=== PATIENT | male | born 1980 | race Hispanic/Latino ===

== ENCOUNTER 2017-12-25 15:15 | Inpatient (IN) | payer MEDICAID ==
[2017-12-25 15:15] VITALS: BMI 27.8
--- NOTE | 2017-12-25 16:23 | C.PDOC ---
History Of Present Illness 37 y/o male, prescreened, presents to the ER requesting detox from heroin. Patient states that he last used heroin in the morning. Patient reports that he also uses street Fentanyl. He also notes that he has been prescribed Seroquel. Denies having suicidal ideation, homicidal ideation, and active physical complaints. Time Seen by Provider: 12/25/17 16:23 Chief Complaint (Nursing): Substance Abuse History Per: Patient History/Exam Limitations: no limitations Past Medical History Reviewed: Historical Data, Nursing Documentation, Vital Signs Vital Signs: Last Vital Signs Temp 97.9 F 12/25/17 16:12 Pulse 82 12/25/17 16:12 Resp 20 12/25/17 16:12 BP 120/84 12/25/17 16:12 Pulse Ox 99 12/25/17 17:48 - Medical History PMH: Anxiety Denies: Depression Surgical History: No Surg Hx - [facility] IMMOBILIZ/WOUND ATTN NEC (01/23/13) INJECT/INFUSE NEC (01/23/13) Family History: States: No Known Family Hx - Social History Hx Tobacco Use: Yes Hx Alcohol Use: No Hx Substance Use: No - Immunization History Hx Tetanus Toxoid Vaccination: Yes Hx Influenza Vaccination: No Hx Pneumococcal Vaccination: No Review Of Systems Except As Marked, All Systems Reviewed And Found Negative. Physical Exam - Physical Exam Appears: Other (mild intoxication, alert, cooperative) Skin: Normal Color, Warm, Dry Head: Atraumatic, Normacephalic Eye(s): bilateral: Normal Inspection Neurological/Psych: Oriented x3, Normal Speech, Other (alert, cooperative, no active psychosis, no active SI) ED Course And Treatment - Laboratory Results Result Diagrams: 12/25/17 16:54 12/25/17 16:54 O2 Sat by Pulse Oximetry: 99 Reevaluation Time: 17:48 Reassessment Condition: Improved (MED CLEAR FOR DETOX. CRISIS NOTIFIED) Medical Decision Making Medical Decision Making: Plan: --Labs --UA --Crisis Disposition Counseled Patient/Family Regarding: Studies Performed, Diagnosis - Disposition Disposition: HOSPITALIZED Disposition Time: 18:01 Condition: STABLE Forms: [facility] (Bulgarian) - POA Present On Arrival: None - Clinical Impression Clinical Impression: Opiate abuse, continuous - Scribe Statement The provider has reviewed the documentation as recorded by the Nida Sutton Provider Attestation: All medical record entries made by the Nida were at my direction and personally dictated by me. I have reviewed the chart and agree that the record accurately reflects my personal performance of the history, physical exam, medical decision making, and the department course for this patient. I have also personally directed, reviewed, and agree with the discharge instructions and disposition.
[2017-12-25 16:58] LABS: BASO # 0.1 K/uL (0.0-0.2); EOS # 0.3 K/uL (0.0-0.7)
[2017-12-25 17:06] LABS: EOS % 2.8 % (0.0-4.0); HEMOGLOBIN 13.9 g/dL (12.0-18.0); LYMPH # 4.5 K/uL (1.0-4.3); MEAN CORPUSCULAR HEMOGLOBIN 29.3 pg (27.0-31.0); MEAN CORPUSCULAR HGB CONC 33.6 g/dL (33.0-37.0); MEAN PLATELET VOLUME 8.4 fL (7.2-11.7); MONO # 0.8 K/uL (0.0-0.8); MONO % 6.8 % (0.0-10.0); NEUT # 6.6 K/uL (1.8-7.0); NEUT % 53.4 % (50.0-75.0); NRBC % 0.2 % (0.0-2.0); RBC 4.77 Mil/uL (4.40-5.90); RED CELL DISTRIBUTION WIDTH 13.2 % (11.5-14.5); WHITE BLOOD COUNT 12.4 K/uL (4.8-10.8)
[2017-12-25 17:07] LABS: SQUAMOUS EPITHIAL < 1 /hpf (0-5); URINE BILIRUBIN NEGATIVE (NEGATIVE); URINE BLOOD NEGATIVE (NEGATIVE); URINE CLARITY Clear (Clear); URINE GLUCOSE (UA) NORMAL (Normal); URINE LEUKOCYTE ESTERASE NEG Leu/uL (Negative); URINE PROTEIN NEGATIVE (NEGATIVE)
[2017-12-25 17:08] LABS: URINE COLOR YELLOW (YELLOW)
[2017-12-25 17:20] LABS: ALB/GLOB RATIO 1.3 (1.0-2.1); ALBUMIN 4.7 g/dL (3.5-5.0); ALT/SGPT 20 U/L (21-72); AST/SGOT 16 U/L (17-59); BLOOD UREA NITROGEN 18 mg/dL (9-20); CALCIUM 9.3 mg/dl (8.6-10.4); GFR AFRICAN-AMERICAN > 60; GFR NON-AFRICAN AMERICAN > 60
[2017-12-25 17:36] LABS: BARBITURATES, UR NEGATIVE (NEGATIVE); PHENCYCLIDINE, UR NEGATIVE (NEGATIVE)
[2017-12-25 17:42] LABS: BENZODIAZEPINES, UR POSITIVE (NEGATIVE); OPIATES, UR POSITIVE (NEGATIVE)
--- NOTE | 2017-12-25 18:31 | PCM.BM ---
<Rolan Moore - Last Filed: 12/25/17 18:30> Treatment Plan Problems - Problems identified on initial assessmt potential for opiate withdrawal Date Initiated: 12/25/17 Time Initiated: 18:31 Status: Active Treatment assets and liabiliti Patient Liabilities: substance abuse, medical problems - Milieu Protocol Maintain good personal hygiene: daily Encourage regular showers, daily Remind patient to perform daily oral care, daily Assist patient to perform ADL's Conduct patient checks and document Observation sheet: Q15 minutes Maintain personal safety: every shift Educate patient to report safety concerns to staff, every shift Monitor environment for contraband/sharps Medication safety: Monitor for expected outcome, potential side effects: every shift, Assess barriers to learning: every shift, Assess readiness for medication education: every shift <Eve Rutherford - Last Filed: 12/26/17 15:08> - Diagnosis (1) Opiate abuse, continuous Status: Acute Interventions: 12/26/17 15:08 * Assess 7x/week regarding severity of withdrawal * Educate regarding risks, benefits, side effects and alternatives of medications * Use Motivational Interviewing for abstinence * Use CBT for relapse prevention * Medication management for withdrawal symptoms * Encourage medication assisted treatment *
[2017-12-25] MEDS ORDERED: Aluminum Hydroxide/Magnesium Hydroxide Susp (30 mL) PO PRN (22:46)
[2017-12-26] MEDS ORDERED: Buprenorphine Hydrochloride 2 mg SL ONE ×2 (09:31→10:45)
--- NOTE | 2017-12-26 15:08 | PCM.PSYCH ---
Initial Psychiatric Evaluation - Initial Psychiatric Evaluation Type of Admission: Voluntary Legal Status: Capacity Chief Complaint (in patient's own words): "I need help" History of Present Illness and Precipitating Events: Pt is seen, chart reviewed, case discussed Pt is a 37 y/o male, who lives with his girlfriend, he has 3 children age 18, 12 , 9 that live with their mother. Pt has a history of opioid use that started as pills when he was 20 y/o and has been using heroin for the past 2 years. Pt states that he uses about 12-20 bags of heroin a day IV, says that he experiences bad withdrawals. He also states that he smokes a pack of cigarettes a day and when offered a patch he denied stating that he wants to fix one problem at a time. Denies cocaine use, has been on Klonopin for 10 years, he abuses about 2mg twice a day, he had vague seizure-like activity in the past, not on meds and OK now. Pt has tried suboxone before from a doctor until the doctor was arrested. Has never been to detox and has never OD'ed. Denies medical issues Negative for HIV. Past psych hx: 2010 for psych issues, specifically depression; denied attempted suicide and any history of emotional trauma, says that he has a lot of anxiety. Family psych hx: Mom, grandma, and sister have depression. Brother and sister both use drugs. Current Medications: Active Medications Generic Name Dose Route Start Last Admin Trade Name Freq PRN Reason Stop Dose Admin Al Hydrox/Mg Hydrox/Simethicone 30 ml 12/25/17 22:46 Maalox 30 Ml PO TID PRN Indigestion / Heartburn Chlordiazepoxide 25 mg 12/25/17 22:47 12/26/17 13:44 Librium PO 25 mg Q4H PRN Administration Alcohol Withdrawal Chlordiazepoxide 25 mg 12/26/17 00:00 12/26/17 11:08 Librium PO 12/29/17 23:59 25 mg Q6H [place] Administration Taper Clonidine HCl 0.1 mg 12/25/17 22:46 12/25/17 23:50 Catapres PO 0.1 mg Q4H PRN Administration Symptoms of alcohol withdrawl Gabapentin 300 mg 12/26/17 10:00 12/26/17 09:52 Neurontin PO 300 mg BID [place] Administration Hydroxyzine HCl 50 mg 12/25/17 22:33 12/25/17 23:50 Atarax PO 50 mg Q6H PRN Administration Anxiety Ibuprofen 600 mg 12/25/17 22:33 Motrin Tab PO Q6H PRN Pain, moderate (4-7) Loperamide HCl 2 mg 12/25/17 22:46 Imodium PO Q8 PRN Diarrhea Methadone HCl 20 mg 12/27/17 10:00 Methadone PO 12/31/17 09:59 Q24H [place] Taper Nicotine 1 patch 12/26/17 10:00 12/26/17 09:52 Nicoderm Cq TD 1 patch DAILY [place] Administration Ondansetron HCl 4 mg 12/25/17 22:46 Zofran Tab PO Q8 PRN Nausea/Vomiting Paroxetine HCl 20 mg 12/26/17 10:00 12/26/17 11:08 Paxil PO 20 mg DAILY [place] Administration Trazodone HCl 100 mg 12/25/17 22:33 12/25/17 23:50 Desyrel PO 100 mg HS PRN Administration Insomnia Past Psychiatric History - Past Psychiatric History Previous Treatment History: None Pertinent Medical Hx (Current Medical&Sleep Prob, Allergies): Allergies Allergy/AdvReac Type Severity Reaction Status Date / Time No Known Allergies Allergy Verified 12/25/17 16:14 Clonazepam [Klonopin] 2 mg PO BID 02/11/12 PARoxetine [Paxil] 20 mg PO DAILY 07/23/12 Review of Systems - Neurological Neurological: UNREMARKABLE - Psychiatric Psychiatric: Abnormal Sleep Pattern, Anxiety, Depression, Difficulty Concentrating, Irritability. absent: Hallucinations, Homicidal Ideation, Suicidal Ideation Mental Status Examination - Personal Presentation Personal Presentation: Looks older than stated age - Affect Affect: Constricted - Motor Activity Motor Activity: Calm - Reliability in Providing Information Reliability in Providing Information: Good - Speech Speech: Organized - Mood Mood: Depressed, Anxious - Formal Thought Process Formal Thought Process: No Impairment - Cognitive Functions Orientation: Person, Place, Situation, Time Sensorium: Alert Attention/Concentration: Attentive Estimate of Intelligence: Average Judgement: Intact, as evidence by: Insight regarding need for hospitalization Memory: Recent intact, as evidence by: Ability to recall events of the day, Remote intact, as evidenced by: Abilit to recall sig. 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 Refer to rehab or IOP, and self-help groups Nicotine patch if needed 34 min Projected ELOS: 4-5 days Prognosis: good withtreatment - Smoking Cessation Smoking Cessation Initiated: Yes
--- NOTE | 2017-12-27 12:20 | PCM.PYCHPN ---
Psychiatric Progress Note - Psychiatric Progress Note Patient seen today, length of contact: 16 min Patient Chief Complaint: "Getting better" Problems Identified/Issues Discussed: The pt is seen, chart reviewed, case discussed with staff. The pt is compliant with medications and reports no side-effects. Symptoms are improving but needs more time to stabilize. After care discussed, support and psychoeducation given. Medication Change: Yes (detox changes daily) Medical Record Reviewed: Yes Mental Status Examination - Cognitive Function Orientation: Person, Place, Situation, Time - Mood Mood: Depressed, Anxious - Affect Affect: Constricted - Formal Thought Process Formal Thought Process: No Impairment - Homicidal Ideation Homicidal Ideation: No Goal/Treatment Plan - Goal/Treatment Plan Need for Continued Stay: Discharge may exacerbated symptoms, Severe functional impairment Progress Toward Problem(s) and Goals/Treatment Plan: Taper with methadone and librium As needed medications All risks, benefits and alternatives of the meds discussed, and the pt agreed and understood. Refer to rehab or IOP, and self-help groups Nicotine patch if needed
--- NOTE | 2017-12-28 11:47 | PCM.PYCHPN ---
Psychiatric Progress Note - Psychiatric Progress Note Patient seen today, length of contact: 16 min Patient Chief Complaint: "I feel hyper" Problems Identified/Issues Discussed: Pt is seen, chart reviewed, case discussed with staff. Pt is compliant with medications, and reports no side-effects. Symptoms are improving and he states he feels "90% better," and wishes he can talk to more people since that helps him. He reports improvement in the withdrawal symptoms. He denies any AVH or any paranoia. Symptoms are improving but need more time to stabilize. Support and psychoeducation given. Medication Change: Yes (detox changes daily) Medical Record Reviewed: Yes Mental Status Examination - Cognitive Function Orientation: Person, Place, Situation, Time Memory: Intact Attention: WNL Concentration: WNL Association: WNL Fund of Knowledge: WNL - Mood Mood: Anxious - Affect Affect: Constricted - Speech Speech: Appropriate - Formal Thought Process Formal Thought Process: No Impairment - Suicidal Ideation Suicidal Ideation: No - Homicidal Ideation Homicidal Ideation: No Goal/Treatment Plan - Goal/Treatment Plan Need for Continued Stay: Discharge may exacerbated symptoms, Severe functional impairment Progress Toward Problem(s) and Goals/Treatment Plan: Opioid withdrawal Opioid use disorder, severe 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 Refer to rehab or IOP, and self-help groups Nicotine patch if needed
[2017-12-29 06:32] VITALS: O2SAT 96
[2017-12-29 09:34] VITALS: BP 138/79; PULSE 85; RESP 20; TEMP 97.7
--- NOTE | 2017-12-29 09:46 | PCM.PYCHDC ---
Mental Status Examination - Mental Status Examination Orientation: Person Discharge Summary - Discharge Note Consultations:: List each consultation separately and include: 1. Reason for request. 2. Findings. 3. Follow-up Summary of Hospital Course include:: 1. Description of specific treatment plan utilized for patients during their course of treatmen. 2. Summarize the time- course for resolution of acute symptoms and/or regressed behaviors. 3. Describe issues identified and worked on during hospitalization. 4. Describe medication utilized. 5. Describe medical problems identified and treated. 6. Reassessment of suicide risk Summary of Hospital Course: Pt is seen, chart reviewed, case discussed Pt is a 37 y/o male, who lives with his girlfriend, he has 3 children age 18, 12 , 9 that live with their mother. Pt has a history of opioid use that started as pills when he was 20 y/o and has been using heroin for the past 2 years. Pt states that he uses about 12-20 bags of heroin a day IV, says that he experiences bad withdrawals. He also states that he smokes a pack of cigarettes a day and when offered a patch he denied stating that he wants to fix one problem at a time. Denies cocaine use, has been on Klonopin for 10 years, he abuses about 2mg twice a day, he had vague seizure-like activity in the past, not on meds and OK now. Pt has tried suboxone before from a doctor until the doctor was arrested. Has never been to detox and has never OD'ed. Denies medical issues Negative for HIV. Past psych hx: 2009 for psych issues, specifically depression; denied attempted suicide and any history of emotional trauma, says that he has a lot of anxiety. Family psych hx: Mom, grandma, and sister have depression. Brother and sister both use drugs. He will go to [email or web address]. - Diagnosis (1) Opiate abuse, continuous Current Visit: Yes Status: Acute - Final Diagnosis (DSM 5) Condition upon Discharge: STABLE Disposition: HOME/ ROUTINE Follow-up Treatment Plan: Taper with methadone and librium As needed medications All risks, benefits and alternatives of the meds discussed, and the pt agreed and understood. Refer to rehab or IOP, and self-help groups Nicotine patch if needed Prescriptions/Medication Reconciliation: PARoxetine [Paxil] 20 mg PO DAILY #30 tab traZODone [Desyrel] 100 mg PO HS PRN #30 tab PRN Reason: Insomnia
== END 2017-12-29 11:15 | disposition home or self-care (01) | DRG 745 ==
LOC: C.ER 15:15 → C.7D 18:01
PROVIDERS: ADMIT Psychiatry & Neurology Psychiatry; ATTEND Psychiatry & Neurology Psychiatry
PROC: HZ52ZZZ Individual Psychotherapy for Substance Abuse Treatment, Cognitive-Behavioral (ICD-10-PCS; principal; 2017-12-25)
PROC: HZ2ZZZZ Detoxification Services for Substance Abuse Treatment (ICD-10-PCS; 2017-12-25)
PROC: HZ59ZZZ Individual Psychotherapy for Substance Abuse Treatment, Supportive (ICD-10-PCS; 2017-12-25)
PROC: HZ56ZZZ Individual Psychotherapy for Substance Abuse Treatment, Psychoeducation (ICD-10-PCS; 2017-12-25)
PROC: HZ42ZZZ Group Counseling for Substance Abuse Treatment, Cognitive-Behavioral (ICD-10-PCS; 2017-12-25)
PROC: HZ46ZZZ Group Counseling for Substance Abuse Treatment, Psychoeducation (ICD-10-PCS; 2017-12-25)
PROC: GZHZZZZ Group Psychotherapy (ICD-10-PCS; 2017-12-25)
PROC: GZ58ZZZ Individual Psychotherapy, Cognitive-Behavioral (ICD-10-PCS; 2017-12-25)
PROC: GZ56ZZZ Individual Psychotherapy, Supportive (ICD-10-PCS; 2017-12-25)
DX: F11.23 Opioid dependence with withdrawal (principal); F13.230 Sedative, hypnotic or anxiolytic dependence with withdrawal, uncomplicated; F32.89 Other specified depressive episodes; F41.9 Anxiety disorder, unspecified; G47.00 Insomnia, unspecified; Z87.891 Personal history of nicotine dependence; Z81.8 Family history of other mental and behavioral disorders